=== PATIENT | female | born 1980 | race Caucasian/White ===

== ENCOUNTER 2018-09-18 21:11 | Emergency (ER) | payer OTHER ==
[2018-09-18 21:21] VITALS: BP 133/91; PULSE 106; RESP 14; TEMP 99.4; O2SAT 98
== END 2018-09-18 21:46 | disposition home or self-care (01) | DRG 153 ==
LOC: ED 21:11
DX: J06.9 Acute upper respiratory infection, unspecified (principal)
CPT/HCPCS: 99282